=== PATIENT | female | born 1965 | race Asian ===

== ENCOUNTER 2025-06-18 13:17 | Day surgery (SDC) | payer OTHER ==
[2025-06-18] VITALS (28 sets, daily range): BP systolic 112–169; BP diastolic 62–100
[~2025-06-18] VITALS: Ht 144.8 cm; Wt 54.7 kg
[~2025-06-18 13:17] MED LIST: CLOBETASOL EMOL15 G1; Flonase 0.05% N16 GM; LEVSOD100 PO
--- NOTE | 2025-06-18 14:25 | NUR ---
Ambulatory in Day Surgery. History, Chart, Medications and Allergies reviewed before start of procedure. Lungs clear T/O to Auscultation. Lungs clear T/O to Auscultation. Patient confirms NPO status and agrees with scheduled surgery. Pre-Op teaching done. Pt verbalizes understanding. Patient States Post-Procedure ride home has been arranged.
--- NOTE | 2025-06-18 14:59 | NUR ---
06/18/25 [id number] Mariano Oleary CONFIRMED AND REVIEWED H&P, MEDCICATIONS, ALLERGIES, MEDICAL HISTORY, RESPIRATORY HISTORY, VITAL SIGNS, 3-LEAD EKG, CONSENTS, AND PHYSICIAN ORDERS. PATIENT CONFIRMS NPO STATUS AND AGREES WITH SCHEDULED PROCEDURE. MONITOR INTACT WITH CONTINUOUS PULSE OXIMETRY, CAPNOGRAPHY, 3-LEAD EKG, INTERMITTENT BP. SUPPLEMENTAL O2 TO BE TITRATED THROUGHOUT PROCEDURE TO MAINTAIN O2 SATURATION ABOVE 90%. PATIENT DETERMINED TO BE ASA APPROPRIATE FOR PROPOFOL SEDATION PRIOR TO START OF PROCEDURE BY DR. TIMMONS.
[2025-06-18] MEDS ORDERED: Midazolam HCl 1MG / ML 2ML Vial ONE (15:03)
[2025-06-18] MEDS ORDERED: Albuterol 2.5 MG/3 ML VIAL ONE (15:58)
--- NOTE | 2025-06-18 16:04 | NUR ---
PT'S OXYGEN LEVEL DROPPED INTO THE 30'S. RAPID RESPONSE CALLED, ORAL AIRWAY PLACED, AMBU BAG HOOKED UP TO O2 AND PLACED ON PT. JAW THRUST AND LIFT PERFORMED. KRISTI CHIN INTO ROOM WHEN CODE CALLED AND ASSUMMED PT CARE. 100MG LIDOCAINE IV PUSHED PER KRISTI. PT SAT UP IN BED REPOSITIONED SATS CAME UP INTO 80-90S. ALBUTERAL NEB WITH NON REBREATHER PER KRISTI ORDERS. DR Starr REMAINED AT BEDSIDE. SEE RN SEDATION NOTE FOR MEDS AND TIMES. PT RECEIVED A TOTAL OF 260MG PROPOFOL AND 1MG VERSED IV DURING PROCEDURE.
--- NOTE | 2025-06-18 17:38 | NUR ---
DISCHARGE NOTE PT OBSERVED IN DSU POST PROCEDURE FOR 1:45. INITIALLY PT ON 4LO2 MAINTAINING SATS HIGH 80'S TO MID 90'S. BY DISCHARGE PT ABLE TO MAINTAIN O2 SATS MID 90'S EVEN DURING AMBULATION WITHOUT SUPPLEMENTAL O2. CHEST XRAY WAS TAKEN AND EVALUATED PT AND XRAY AND DETERMINED PT WAS SAFE TO DISCHARGE TO HOME. ALL OTHER VSS WELL. PT STATES SHE FEELS "COMPLETELY FINE" AND HAD NO COMLAINTS. PT TOLERATING PO FLUIDS. FINE CRACKLES NOTED IN LUNG SOUNDS AND DR Starr MADE AWARE. PT TOLERATING PO FLUIDS. Patient up to Ambulate independently. Gait steady. Discharge instructions reviewed with patient. Patient verbalizes understanding. Copy given to patient to take home. PT ADVISED IF ANY DIFFICULTY BREATHING TO GO TO ER. Discharged via wheelchair to private car for ride home.
== END 2025-06-18 17:35 | disposition home or self-care (01) ==
LOC: ORSCMMR 13:17 → ORD 14:30 → ORSCMMR 14:30 → ORD 07-16 14:00
PROVIDERS: Family Medicine
PROC: 0DJD8ZZ Inspection of Lower Intestinal Tract, Via Natural or Artificial Opening Endoscopic (ICD-10-PCS; principal; 2025-06-18 14:30)
DX: Z12.11 Encounter for screening for malignant neoplasm of colon (principal); R19.5 Other fecal abnormalities; E03.9 Hypothyroidism, unspecified; E78.2 Mixed hyperlipidemia; F41.1 Generalized anxiety disorder; F32.A Depression, unspecified; R73.03 Prediabetes; K21.9 Gastro-esophageal reflux disease without esophagitis; Z79.899 Other long term (current) drug therapy
CPT/HCPCS: 71045; J2250; J2704; J7120

== ENCOUNTER → 2025-07-05 | Outpatient (CLI) | payer OTHER | LOC: LAB SHORT 16:38 → LAB 16:38 | PROVIDERS: Physician Assistant | DX: Z01.419 Encounter for gynecological examination (general) (routine) without abnormal findings (principal) | CPT/HCPCS: 87624; G0145 ==